=== PATIENT | female | born 1945 | race Native Hawaiian/Other Pacific Islander ===

== ENCOUNTER 2024-12-28 09:16 | Outpatient (CLI) | payer MEDICARE, OTHER ==
[2024-12-28] MEDS ORDERED: COLLAGENASE 5 GM TUBE UD TP ONE (09:26)
== END 2024-12-28 23:59 | disposition home health service (06) ==
LOC: WOU 09:16
PROVIDERS: ATTEND Student in an Organized Health Care Education/Training Program
DX: I87.313 Chronic venous hypertension (idiopathic) with ulcer of bilateral lower extremity (principal); L97.322 Non-pressure chronic ulcer of left ankle with fat layer exposed; L97.812 Non-pressure chronic ulcer of other part of right lower leg with fat layer exposed; L97.311 Non-pressure chronic ulcer of right ankle limited to breakdown of skin; M21.612 Bunion of left foot; I10 Essential (primary) hypertension
CPT/HCPCS: 11042; A6253

== ENCOUNTER 2025-03-08 10:51 | Outpatient (CLI) | payer MEDICARE, OTHER ==
[2025-03-08] MEDS ORDERED: COLLAGENASE 5 GM TUBE UD TP ONE (11:03)
== END 2025-03-08 23:59 | disposition home health service (06) ==
LOC: WOU 10:51
PROVIDERS: ATTEND Student in an Organized Health Care Education/Training Program
DX: I87.312 Chronic venous hypertension (idiopathic) with ulcer of left lower extremity (principal); L97.325 Non-pressure chronic ulcer of left ankle with muscle involvement without evidence of necrosis; I87.2 Venous insufficiency (chronic) (peripheral); M21.612 Bunion of left foot
CPT/HCPCS: 11043